=== PATIENT | female | born 1945 | race Two or more races ===

== ENCOUNTER 2017-04-29 12:55 | Outpatient (CLI) | payer OTHER | END 2017-04-29 13:01 | disposition home or self-care (01) | LOC: RAD 501 12:55 | DX: M25.512 Pain in left shoulder (principal); M25.511 Pain in right shoulder; M25.551 Pain in right hip ==

== ENCOUNTER 2017-05-21 07:52 | Outpatient (CLI) | payer OTHER ==
[2017-05-25] MEDS ORDERED: CLONAZEPAM0.5 MG PO (11:04)
[2017-05-25] MEDS ORDERED: LOSARTAN-HCTZ1 EAC2 PO (11:04)
[2017-05-25] MEDS ORDERED: PEPCID40 MG PO (11:04)
[2017-05-25] MEDS ORDERED: PAMELOR50 M1 PO (11:05)
== END 2017-05-21 08:22 | disposition home or self-care (01) ==
LOC: LAB 07:52
DX: D68.8 Other specified coagulation defects (principal); D64.89 Other specified anemias; E88.89 Other specified metabolic disorders; N39.0 Urinary tract infection, site not specified; Z22.322 Carrier or suspected carrier of Methicillin resistant Staphylococcus aureus

== ENCOUNTER 2017-05-21 08:12 | Outpatient (CLI) | payer OTHER ==
[2017-05-25] MEDS ORDERED: CLONAZEPAM0.5 MG PO (11:04)
[2017-05-25] MEDS ORDERED: LOSARTAN-HCTZ1 EAC2 PO (11:04)
[2017-05-25] MEDS ORDERED: PEPCID40 MG PO (11:04)
[2017-05-25] MEDS ORDERED: PAMELOR50 M1 PO (11:05)
== END 2017-05-21 08:56 | disposition home or self-care (01) ==
LOC: RAD 08:12
DX: Z76.89 Persons encountering health services in other specified circumstances (principal)

== ENCOUNTER 2017-05-21 08:17 | Outpatient (CLI) | payer OTHER ==
[2017-05-25] MEDS ORDERED: LOSARTAN-HCTZ1 EAC2 PO (11:04)
[2017-05-25] MEDS ORDERED: CLONAZEPAM0.5 MG PO (11:04)
[2017-05-25] MEDS ORDERED: PEPCID40 MG PO (11:04)
[2017-05-25] MEDS ORDERED: PAMELOR50 M1 PO (11:05)
== END 2017-05-21 08:56 | disposition home or self-care (01) ==
LOC: EKG 08:17
DX: I49.8 Other specified cardiac arrhythmias (principal)

== ENCOUNTER 2017-05-27 08:45 | Outpatient (CLI) | payer OTHER ==
[~2017-05-27 08:45] MED LIST: CLONAZEPAM0.5 MG PO; LOSARTAN-HCTZ1 EAC2 PO; PAMELOR50 M1 PO; PEPCID40 MG PO
== END 2017-05-27 09:05 | disposition home or self-care (01) ==
LOC: LAB 08:45
DX: D64.89 Other specified anemias (principal)

== ENCOUNTER 2017-05-31 08:28 | Outpatient (CLI) | payer OTHER | END 2017-05-31 08:37 | disposition home or self-care (01) | LOC: LAB 08:28 | DX: D64.89 Other specified anemias (principal) ==

== ENCOUNTER 2017-06-03 09:35 | Outpatient (CLI) | payer OTHER | END 2017-06-03 09:44 | disposition home or self-care (01) | LOC: LAB 09:35 | DX: D64.89 Other specified anemias (principal) ==

== ENCOUNTER → 2017-06-28 15:01 | Outpatient (CLI) | payer OTHER | END | disposition home or self-care (01) | LOC: EKG 15:01 | DX: I49.8 Other specified cardiac arrhythmias (principal) ==

== ENCOUNTER 2017-06-29 06:00 | Day surgery (SDC) | payer OTHER | END 2017-06-29 21:20 | disposition home or self-care (01) | LOC: CIR.AMB 06:00 | DX: M75.122 Complete rotator cuff tear or rupture of left shoulder, not specified as traumatic (principal); M24.512 Contracture, left shoulder; M75.22 Bicipital tendinitis, left shoulder; M19.012 Primary osteoarthritis, left shoulder ==

== ENCOUNTER 2018-05-31 08:11 | Outpatient (CLI) | payer OTHER | END 2018-05-31 08:20 | disposition home or self-care (01) | LOC: TOM 08:11 | DX: K56.50 Intestinal adhesions [bands], unspecified as to partial versus complete obstruction (principal); Q41.8 Congenital absence, atresia and stenosis of other specified parts of small intestine ==

== ENCOUNTER 2019-10-17 07:31 | Outpatient (CLI) | payer OTHER | END 2019-10-17 07:41 | disposition home or self-care (01) | LOC: SONOGRAMA 07:31 → MAMO-SONO 08:15 | PROVIDERS: ATTEND Otolaryngology | DX: E04.8 Other specified nontoxic goiter (principal); R13.19 Other dysphagia ==

== ENCOUNTER 2024-11-29 09:05 | Outpatient (CLI) | payer OTHER | END 2024-11-29 09:08 | disposition home or self-care (01) | LOC: TOM 09:05 | PROVIDERS: ATTEND Internal Medicine Gastroenterology | DX: R10.84 Generalized abdominal pain (principal); K59.04 Chronic idiopathic constipation; K56.600 Partial intestinal obstruction, unspecified as to cause ==

== ENCOUNTER 2025-03-18 10:38 | Emergency (ER) | payer OTHER ==
[~2025-03-18] VITALS: Ht 162.6 cm; Wt 102.5 kg
[2025-03-18] MEDS ORDERED: ZIPSOR25 MG PO (12:24)
[2025-03-18] MEDS ORDERED: JARDIANCE10 MG PO (12:25)
[2025-03-18] MEDS ORDERED: LINZESS72 MCG PO (12:25)
[2025-03-18] MEDS ORDERED: ACID REDUCER15 MG GT (12:25)
[2025-03-18] MEDS ORDERED: GRALISE600 MG PO (12:25)
[2025-03-18] MEDS ORDERED: ARBLI10 MG/1 ML PO (12:26)
[2025-03-18] MEDS ORDERED: TRAZODONE HCL100 MG PO (12:26)
[2025-03-18] MEDS ORDERED: HYDROCHLOROTH12.5 MG (12:27)
[2025-03-18] MEDS ORDERED: SODIUM CHLORIDE 0.45 % 1,000 ML IV STA (14:04)
[2025-03-18 14:41] LABS: BASO % 0.6 % (0.1-1.2); EOS # 0.21 (0.04-0.54); EOS % 1.6 % (0.7-7.0); LYMPH # 3.50 (1.18-3.74); LYMPH % 26.7 % (19.3-53.1); MEAN PLATELET VOLUME 11.60 fl (9.4-12.4); MONO # 0.93 (0.24-0.82); MONO % 7.1 % (4.7-12.5); NEUT # 8.37 (1.56-6.13); NEUT % 63.7 % (34.0-71.1); RED CELL DISTRIBUTION WIDTH 15.6 % (11.6-14.4)
[2025-03-18 15:09] LABS: ALT/SGPT 31.0 U/L (12-78); AST/SGOT 21.0 U/L (15-37); BILIRUBIN TOTAL 0.41 mg/dL (0.3-1.2); BUN CREA RATIO 24.0 (7.0-25.0); CREATININE SERUM 0.94 mg/dL (0.55-1.02); GFR 57.74; GLOBULINA 4.7 G/DL (2.4-3.5); GLUCOSE FASTING 147.0 mg/dL (65-100); OSMOLALITY SERUM 291.0 MOSM/KG (275-295)
[2025-03-18 15:32] LABS: URINE APPEARANCE Clear; URINE BILIRRUBIN Negative (NEGATIVE); URINE BLOOD Negative; URINE COLOR Yellow; URINE KETONE Negative (NEGATIVE); URINE LEUKOCYTE Negative; URINE NITRATE Negative; URINE PROTEIN Negative (NEGATIVE); URINE UROBILINOGEN 1.0 E.U./dl
[2025-03-18 15:37] LABS: URINE BACTERIA 1342.8 uL (0.0-1933); URINE EPITHELIAL CELLS 49.5 uL (0.0-38.8); URINE RBC 5.2 uL (0.0-20.8); URINE WBC 34.6 uL (0.0-23.2)
[2025-03-18 16:06] LABS: URINE CAST 0.14 uL (0.0-1.40); URINE GLUCOSE >=1000 MG/DL (NEGATIVE)
[2025-03-18] MEDS ORDERED: DEXAMETHASONE SODIUM PHOSP/PF 10 MG/ML VIAL IV ONE (19:15)
[2025-03-18] MEDS ORDERED: FAMOTIDINE/PF 20 MG/2 ML VIAL IV ONE (19:15)
[2025-03-18] MEDS ORDERED: ACETAMINOPHEN 325 MG TABLET PO ONE (19:15)
[2025-03-18] MEDS ORDERED: MACROBID 100 M100 MG PO (19:40)
[2025-03-18] MEDS ORDERED: DICY20TA PO (19:40)
[2025-03-18] MEDS ORDERED: PEPCID AC20 MG PO (19:40)
== END 2025-03-18 20:07 | disposition home or self-care (01) ==
LOC: ER 10:38
PROVIDERS: General Practice
DX: R10.9 Unspecified abdominal pain (principal); G89.29 Other chronic pain; N39.0 Urinary tract infection, site not specified; Z88.6 Allergy status to analgesic agent
CPT/HCPCS: 36415; 74177; 96365; 99284; J1100; J3490; Q9965